=== PATIENT | female | born 1965 | race Caucasian/White ===

== ENCOUNTER 2022-02-16 17:11 | Emergency (ER) | payer MEDICARE, MEDICAID, SELFPAY ==
[2022-02-16 17:20] VITALS: BP 125/60; PULSE 62; RESP 16; TEMP 37.1; O2SAT 100; BMI 29.2
--- NOTE | 2022-02-16 17:21 | DI.RAD.S_ITS ---
PROCEDURE: XR FINGER LT MIN 2V INDICATIONS: cut left index TECHNIQUE: AP hand, 2 views of the left 2nd finger(s) acquired. COMPARISON: None. FINDINGS: Amputation of the distal left 2nd digit including a small portion of the tuft. IMPRESSION: Amputation of the distal left 2nd digit occluding small portion of the tuft. Otherwise normal exam. Dictated by: Amador Pascual M.D. on 02/16/2022 at 18:10 Approved by: Amador Pascual M.D. on 02/16/2022 at 18:11
[2022-02-16] MEDS: LIDO 1%/SOD BICARB 8.4% (10ML) 10 ML SYRINGE SUBCUT (17:47)
[2022-02-16] MEDS: OXYCODONE/ACETAMINOPHEN 5/325 TABLET 2 TAB PO (17:49)
[2022-02-16] MEDS: TET,DIPH,PERTUSS(ACELL),VAC/PF 0.5 ML SYRINGE IM (17:50)
--- NOTE | 2022-02-16 17:50 | ED_ITS ---
HPI - Wound/Laceration <Aviva Buckley, [facility] - Last Filed: 02/16/22 20:04> General Chief Complaint: Wound/Laceration Stated Complaint: cut lt pointer finger Time Seen by Provider: 02/16/22 17:21 Source: patient Mode of arrival: Ambulatory History of Present Illness HPI narrative: This is a 56-year-old female who presents to the emergency department for a left 2nd digit partial fingertip amputation involving the nail bed. She states this happened when her finger was grabbed by a wood plaster helper. She denies having any recent tetanus vaccination in the last 10 years. She has very dirty hands and feet and says that she has been in the [facility] for the last 4 days. She is on chronic pain medication including 15 and 30 mg of morphine at multiple doses per day and is on a pain contract. She endorses having a significant amount of pain and throbbing. Related Data Home Medications Medication Instructions Recorded Confirmed amitriptyline 25 mg tablet 25 mg PO HS ##0 09/29/16 atorvastatin 40 mg tablet 40 mg PO HS ##0 09/29/16 baclofen 10 mg tablet 10 mg PO BID ##0 09/29/16 famotidine 20 mg tablet 20 mg PO BID ##0 09/29/16 gabapentin 400 mg capsule 2 tab PO TID ##0 09/29/16 (Neurontin) metformin 500 mg tablet,extended 500 mg PO QPM ##0 09/29/16 release 24 hr (Glucophage XR) oxycodone 20 mg tablet,crush 1 tab PO TID ##0 09/29/16 resistant,extended release 12 hr prazosin 1 mg capsule 2 tab PO HS ##0 09/29/16 albuterol sulfate 90 mcg/actuation 1 - 2 IH PRN PRN ##0 10/03/16 aerosol inhaler (Ventolin HFA) fluticasone propionate 50 16 gm NS QDAY ##0 10/03/16 mcg/actuation nasal spray,suspension Previous Rx's Medication Instructions Recorded hydromorphone 2 mg tablet 2 mg PO Q3HP PRN #90 tabs 10/04/16 (Dilaudid) oxycodone 10 mg tablet 10 mg PO Q4HP PRN #120 tabs 10/06/16 oxycodone 20 mg tablet,crush 20 mg PO TID #60 tabs 10/06/16 resistant,extended release 12 hr (OxyContin) doxycycline hyclate 100 mg tablet 100 mg PO DAILY 5 days #10 tabs 02/16/22 ketorolac 10 mg tablet 10 mg PO TID PRN pain 5 days #14 02/16/22 tabs mupirocin 2 % topical ointment 1 applic topical BID #15 grams 02/16/22 Allergies Allergy/AdvReac Type Severity Reaction Status Date / Time latex [LATEX] Allergy Mild RASH ON Verified 02/16/22 17:24 HANDS WHEN WEARING LATEX GLOVES Review of Systems <LILY Mukherjee - Last Filed: 02/16/22 20:04> Review of Systems Narrative: Review of systems is negative for acute abnormalities unless otherwise noted in HPI Patient History <LILY Mukherjee - Last Filed: 02/16/22 20:04> Social History Smoking Status: Unknown if ever smoked Smoking Status: Unknown if ever smoked alcohol intake frequency: holidays/special occasions only Substance Use Type: does not use Exam <LILY Mukherjee - Last Filed: 02/16/22 20:04> Narrative Exam Narrative: Reviewed vitals signs and nursing notes. General: cooperative, comfortable, in no acute distress, very soiled clothing and upper extremities HEENT: symmetrical facial expressions, moist mucous membranes MSK: moves all extremities, neurovascularly intact, no weakness, normal tone Skin: brisk capillary refill, without pallor or erythema, left distal finger pad amputation with partial fingernail removal. Wound was thoroughly irrigated with normal saline after digital block with 1% lidocaine buffered with sodium bicarb, no foreign debris, patient had minor oozing of blood after wound was cleansed, was treated with bacitracin, Surgicel, pressure dressing and bleeding stopped. Neuro: normal speech and cognition, A&O x3, ambulatory, clear speech Psych: mental status is grossly normal, congruent mood, normal affect, pleasant and cooperative Initial Vital Signs Initial Vital Signs: Vital Signs Temperature 98.8 F 02/16/22 17:20 Pulse Rate 62 02/16/22 17:20 Respiratory Rate 16 02/16/22 17:20 Blood Pressure 125/60 02/16/22 17:20 Pulse Oximetry 100 02/16/22 17:20 Oxygen Delivery Method 02/16/22 17:20 <Milton Singleton MD - Last Filed: 02/16/22 20:31> Initial Vital Signs Initial Vital Signs: Vital Signs Temperature 98.8 F 02/16/22 17:20 Pulse Rate 62 02/16/22 17:20 Respiratory Rate 16 02/16/22 17:20 Blood Pressure 125/60 02/16/22 17:20 Pulse Oximetry 100 02/16/22 17:20 Oxygen Delivery Method 02/16/22 17:20 Course <AUGUSTO MukherjeeP - Last Filed: 02/16/22 20:04> Orders Ordered: ED Orders 02/16/22 17:21 XR finger LT min 2V Stat Discontinued Medications Bacitracin (Bacitracin Oint 0.9 Gm Pckt) 1 applic TOP NOW ONE Stop: 02/16/22 17:28 Last Admin: 02/16/22 17:52 Dose: 1 applic Documented By: RB Diphtheria/Tetanus/Acell Pertussis (Tet,Diph,Pertuss(Acell),Vac/Pf 0.5 Ml Syringe) 0.5 ml IM .ONCE ONE Stop: 02/16/22 17:28 Last Admin: 02/16/22 17:50 Dose: 0.5 ml Documented By: RB Ketorolac Tromethamine (Ketorolac 30 Mg/Ml Vial) 15 mg IM NOW ONE Stop: 02/16/22 17:28 Last Admin: 02/16/22 17:52 Dose: 15 mg Documented By: RB Lidocaine/Sodium Bicarbonate (Lido 1%/Sod Bicarb 8.4% (10ml) 10 Ml Syringe) 10 ml SUBCUT NOW ONE Stop: 02/16/22 17:28 Last Admin: 02/16/22 17:47 Dose: 10 ml Documented By: RB Oxycodone/Acetaminophen (Oxycodone/Acetaminophen 5/325 Tablet) 2 tab PO NOW ONE Stop: 02/16/22 17:28 Last Admin: 02/16/22 17:49 Dose: 2 tab Documented By: RB Vital Signs Vital signs: Vital Signs - 8 hr 02/16/22 17:20 02/16/22 19:03 Temperature 98.8 F Pulse Rate 62 63 Respiratory Rate 16 18 Blood Pressure 125/60 119/56 L Pulse Oximetry 100 94 Oxygen Delivery Method Room Air Room Air <Milton Singleton MD - Last Filed: 02/16/22 20:31> Orders Ordered: ED Orders 02/16/22 17:21 XR finger LT min 2V Stat Discontinued Medications Bacitracin (Bacitracin Oint 0.9 Gm Pckt) 1 applic TOP NOW ONE Stop: 02/16/22 17:28 Last Admin: 02/16/22 17:52 Dose: 1 applic Documented By: RB Diphtheria/Tetanus/Acell Pertussis (Tet,Diph,Pertuss(Acell),Vac/Pf 0.5 Ml Syringe) 0.5 ml IM .ONCE ONE Stop: 02/16/22 17:28 Last Admin: 02/16/22 17:50 Dose: 0.5 ml Documented By: RB Ketorolac Tromethamine (Ketorolac 30 Mg/Ml Vial) 15 mg IM NOW ONE Stop: 02/16/22 17:28 Last Admin: 02/16/22 17:52 Dose: 15 mg Documented By: RB Lidocaine/Sodium Bicarbonate (Lido 1%/Sod Bicarb 8.4% (10ml) 10 Ml Syringe) 10 ml SUBCUT NOW ONE Stop: 02/16/22 17:28 Last Admin: 02/16/22 17:47 Dose: 10 ml Documented By: RB Oxycodone/Acetaminophen (Oxycodone/Acetaminophen 5/325 Tablet) 2 tab PO NOW ONE Stop: 02/16/22 17:28 Last Admin: 02/16/22 17:49 Dose: 2 tab Documented By: RB Vital Signs Vital signs: Vital Signs - 8 hr 02/16/22 17:20 02/16/22 19:03 Temperature 98.8 F Pulse Rate 62 63 Respiratory Rate 16 18 Blood Pressure 125/60 119/56 L Pulse Oximetry 100 94 Oxygen Delivery Method Room Air Room Air MDM - Wound/Laceration <LILY Mukherjee - Last Filed: 02/16/22 20:04> ECG Data Interpretation: PROCEDURE:? XR FINGER LT MIN 2V ? INDICATIONS:? cut left index ? TECHNIQUE:? AP hand, 2 views of the left 2nd? finger(s) acquired.? ? COMPARISON:? None. ? FINDINGS:? ? Amputation of the distal left 2nd digit including a small portion of the tuft. ? IMPRESSION:? Amputation of the distal left 2nd digit occluding small portion of the tuft. ?Otherwise normal exam.? ? ? Dictated by: Amador Pascual M.D. on 02/16/2022 at 18:10 ? ? Approved by: Amador Pascual M.D. on 02/16/2022 at 18:11 ? [facility] Narrative Medical decision making narrative: This is a 56-year-old female presents to the emergency department with a left distal fingertips amputation. Bleeding is controlled with pressure, x-ray shows amputation of the distal left 2nd digit including small portion of the tuft, otherwise normal exam. Patient was given a tetanus vaccination, 15 mg of ketorolac, a digital block was performed at her PIP joint of her left 2nd digit with good result, extensive irrigation and wound cleaning of distal fingertip amputation. Pressure was applied, small amount of bacitracin with Xeroform, Surgicel, stretchy gauze dressing, patient did not bleed through her dressing and had adequate pain control while in the emergency department. She is on chronic opioid medications at home and will use those following today's injury. I gave her a prescription of topical mupirocin ointment, doxycycline for MRSA coverage, and wound care supplies to dress her wound. She is encouraged to follow-up with [facility] if she has any ongoing issues with her wound. She is living in the [facility] and was quite dirty when she arrived, access to Medicare difficult so she was given prophylactic antibiotics. Patient is appropriate and amenable to discharge home. Vital signs are stable on repeat examination is unremarkable. Patient has been informed of results. Patient has been given strict return to ER precautions for any new or worsening symptoms. Patient understands to follow up closely with outpatient providers as instructed. Patient understands plan and agrees to discharge home. All questions and concerns answered at this time. Discharge Plan Departure Patient Disposition: Home Clinical Impression: Amputation finger Qualifiers: Encounter type: initial encounter Qualified Code(s): S68.119A - Complete trau matic metacarpophalangeal amputation of unspecified finger, initial encounter Instructions: DI for Laceration Repair -- Finger Activity Restrictions/Additional Instructions: *You have been diagnosed with a left distal fingertip amputation. Please keep this dressing on until you get home, you may recall can figure it so that it is not too tight. This will be quite painful over the next week. 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 Your tetanus was updated today, please follow-up with your primary care provider for follow-up or return to the emergency department for any worsening of this. *What to do: *Please continue to take your regular medications as directed. [ x] New medication prescriptions sent to your pharmacy: [ [facility]] [ ] New medication written as a paper prescription [ ] No new medications given *Please follow up with your primary care provider in 2-3 days, call for an appointment. Let them know you were seen in the Emergency Department and that we asked that you be seen for follow-up. We will electronically transmit a record of today's note if your PCP is in our system *If you do not have a primary care provider please contact [phone] to establish care with one of [facility] primary care providers. *Return to Emergency Department if you should have any new, worsening, or concerning symptoms, such as [fever greater than 101F, chills, worsening pain, persistent vomiting or other bothersome symptoms]. Prescriptions: New doxycycline hyclate 100 mg tablet 100 mg PO DAILY 5 Days Qty: 10 0RF ketorolac 10 mg tablet 10 mg PO TID PRN (Reason: pain) 5 Days Qty: 14 0RF mupirocin 2 % ointment 1 applic topical BID Qty: 15 0RF No Action atorvastatin 40 MG tablet 40 mg PO HS Qty: 0 gabapentin [Neurontin] 400 MG capsule 2 tab PO TID Qty: 0 prazosin 1 MG capsule 2 tab PO HS Qty: 0 amitriptyline 25 MG tablet 25 mg PO HS Qty: 0 metformin [Glucophage XR] 500 MG tablet extended release 24 hr 500 mg PO QPM Qty: 0 famotidine 20 MG tablet 20 mg PO BID Qty: 0 baclofen 10 MG tablet 10 mg PO BID Qty: 0 oxycodone 20 MG tablet,oral only,ext.rel.12 hr 1 tab PO TID Qty: 0 fluticasone propionate 16 GM spray,suspension 16 gm NS QDAY Qty: 0 albuterol sulfate [Ventolin HFA] 90 MCG/PUFF HFA aerosol inhaler 1 - 2 IH PRN PRNQty: 0 hydromorphone [Dilaudid] 2 MG tablet 2 mg PO Q3HP PRNQty: 90 0RF oxycodone [OxyContin] 20 MG tablet,oral only,ext.rel.12 hr 20 mg PO TID Qty: 60 0RF oxycodone 10 MG tablet 10 mg PO Q4HP PRNQty: 120 0RF Referrals: Marcie Monsalve ARNP [Primary Care Provider] - Visit Report Forms: Patient Portal/API <Milton Singleton MD - Last Filed: 02/16/22 20:31> Cosign ED Attending Cosignature Attestation: I was immediately available in the department for consultation. ?This documentation has been reviewed and I agree with assessment and plan. Supervised by Milton Singleton MD
[2022-02-16] MEDS: KETOROLAC 30 MG/ML VIAL 15 MG IM (17:52)
[2022-02-16] MEDS: BACITRACIN OINT 0.9 GM PCKT 1 APPLIC TOP (17:52)
[2022-02-16 19:03] VITALS: BP 119/56; PULSE 63; RESP 18; O2SAT 94
== END 2022-02-16 19:05 | disposition home or self-care (01) ==
PROVIDERS: Emergency Provider Nurse Practitioner Critical Care Medicine; PCP Nurse Practitioner Family
DX: S68.119A Complete traumatic metacarpophalangeal amputation of unspecified finger, initial encounter (principal); W31.89XA Contact with other specified machinery, initial encounter; Z23 Encounter for immunization
CPT/HCPCS: 73140; 90471; 96372; 99283; 90715; J1885